=== PATIENT | male | born 1945 | race American Indian/Alaskan Native ===

== ENCOUNTER 2019-05-25 20:25 | Emergency (ER) | payer SELFPAY ==
[2019-05-25 20:41] VITALS: BP 156/75
== END 2019-05-25 21:42 | disposition left against medical advice (07) ==
LOC: ED 20:25
DX: H53.8 Other visual disturbances (principal); Z53.21 Procedure and treatment not carried out due to patient leaving prior to being seen by health care provider

== ENCOUNTER 2021-06-06 07:13 | Day surgery (SDC) | payer MEDICARE ==
[~2021-06-06 07:13] MED LIST: LACTATED RINGERS 1,000 ML ONE
[2021-06-06] MEDS ORDERED: LIDOCAINE MPF (2%) 20 MG/1 ML VIAL 5 ML ONE (07:20)
[2021-06-06] MEDS ORDERED: propofoL 200 MG/20 ML VIAL IV ONE (07:20)
[2021-06-06] MEDS ORDERED: HYDROmorphone 1 MG/1 ML INJ IV PRN ×2 (07:47)
[2021-06-06] MEDS ORDERED: ONDANSETRON 4 MG/2 ML INJ IV PRN (07:47)
[2021-06-06] MEDS ORDERED: LACTATED RINGERS 1,000 ML IV SCH (08:00)
--- NOTE | 2021-06-06 08:01 | Anesthesia Day of Surgery ---
Anesthesia Day of Surgery - Day of Surgery Patient Examined: Yes Patient H&P Reviewed: Yes Patient is NPO: Yes
[2021-06-06] MEDS ORDERED: INSULIN LISPRO 100 UNIT/ML SUB-Q ONE ×2 (08:05→08:09)
[2021-06-06] MEDS ORDERED: LIDOCAINE (1%) 10 MG/1 ML VIAL 20 ML MDV ONE (08:06)
[2021-06-06] MEDS ORDERED: BUPIVACAINE/PF (0.25%) 2.5 MG/ML 30 ML VIAL INFILTRATI ONE (08:06)
--- NOTE | 2021-06-06 08:06 | Anesthesia Consultation ---
Anesthesia Consult and Med Hx Date of service: 06/06/21 - Airway Anesthetic Teeth Evaluation: Good, Dentures (Upper) ROM Head & Neck: Adequate Mental/Hyoid Distance: Adequate Mallampati Class: Class II Intubation Access Assessment: Good - Pre-Operative Health Status ASA Pre-Surgery Classification: ASA3 Proposed Anesthetic Plan: General - Pulmonary Hx Asthma: Yes - Cardiovascular System Hx Hypertension: Yes - Central Nervous System Hx Psychiatric Problems: Yes (Doesn't fully understand the surgery; daughter present at bedside) - Gastrointestinal Hx Gastroesophageal Reflux Disease: No - Endocrine Hx Non-Insulin Dependent Diabetes: Yes (FBS 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
[2021-06-06] MEDS ORDERED: ceFAZolin/Water 2 GM/20 ML 2 GM/20 ML SYRINGE IV ONE (08:40)
[2021-06-06] MEDS ORDERED: fentaNYL 100 MCG/2 ML INJ ONE (09:44)
[2021-06-06] MEDS ORDERED: DEXTROSE 50% IN WATER (25GM) 50 ML SYRINGE IV ONE ×2 (10:18→13:23)
[2021-06-06] MEDS ORDERED: BACITRACIN ZINC OINT 28.4 GM TP ONE ×2 (10:22→10:24)
[2021-06-06] MEDS ORDERED: ONDANSETRON 4 MG/2 ML INJ ONE (10:23)
[2021-06-06] MEDS ORDERED: SODIUM CHLORIDE 0.9% IRR 1,500 ML BOTTLE IR ONE (10:24)
--- NOTE | 2021-06-06 11:19 | Post Operative Note ---
Pre-op diagnosis: hydrocele Post-op diagnosis: same Findings: large Procedure: r hydrocelectomy Surgeon: MARISA BRIZUELA Estimated blood loss: minimal Pathology: list (sac) Specimen disposition: to lab Condition: stable Disposition: PACU
--- NOTE | 2021-06-06 11:21 | Discharge Summary ---
Short Stay Discharge Plan Activity: other (no straining ) Weight Bearing Status: Full Weight Bearing Diet: low fat, low cholesterol, low salt Special Instructions: other (no lifting ice x 24 hrs ) Follow up with: [facility] KATHIE [Primary Care Provider] - 7 Days MARISA BRIZUELA MD [Staff Physician] - 7 Days
[2021-06-06] MEDS ORDERED: ceFAZolin/Water 2 GM/20 ML 2 GM/20 ML SYRINGE IV SCH (12:00)
--- NOTE | 2021-06-06 13:48 | Post Anesthesia Evaluation ---
- Post Anesthesia Evaluation Patient Participated: Yes Airway Patent: Yes Stable Respiratory Function: Yes Nausea/Vomiting: No Temp > 96.8F: Yes Pain Manageable: Yes Adequeate Hydration: Yes Anesthesia Complications: No Block Receding Appropriately: Not Applicable Patient on Ventilator: No
--- NOTE | 2021-06-06 13:56 | Operative Report ---
DATE OF SURGERY: 06/06/2021 PREOPERATIVE DIAGNOSIS: Large right hydrocele. POSTOPERATIVE DIAGNOSIS: Large right hydrocele. PROCEDURE: Right hydrocelectomy. SURGEON: Kevin Feliciano MD ANESTHESIA: General. FINDINGS: This is a gentleman with a very large right scrotal mass. It was filled with fluid on ultrasound. Now presents for treatment. DESCRIPTION OF PROCEDURE: The patient was brought to the operating room and placed on the operating table. Following induction of anesthesia, placed in the supine position, prepped and draped in usual sterile fashion. An oblique incision made over the hemiscrotum, carried down to the tunica vaginalis. Lots of the surrounding fascia was adherent. It was dissected free. Once we opened the tunica approximately 200 mL of clear yellow fluid was obtained. Large amount of sac was excised and oversewn and cauterized. We then did a little bit of a bottleneck as well, so it would not regrow around the testis. The patient tolerated the procedure well. Closure was accomplished with a 2-0 and 3-0 chromic, skin with 2-0 and 3-0 chromic. The patient tolerated the procedure well. Minimal blood loss, brought to recovery in stable condition. TID: [id number] RECEIPT: [id number] MAREN/ERNESTINE
[2021-06-06 14:52] VITALS: BP 133/75
== END 2021-06-06 13:45 | disposition home or self-care (01) ==
LOC: OR 07:13 → EDSTATUS 08:00 → OR 13:45
PROVIDERS: ATTEND Urology
DX: N43.2 Other hydrocele (principal); N50.82 Scrotal pain; R35.0 Frequency of micturition; I10 Essential (primary) hypertension; E11.9 Type 2 diabetes mellitus without complications; J45.909 Unspecified asthma, uncomplicated; Z79.899 Other long term (current) drug therapy; Z98.890 Other specified postprocedural states
CPT/HCPCS: 55040; 82962; 88302; J0690; J1170; J2405; J2704; J3010; J3490; J7120; Q9967; J1815